=== PATIENT | female | born 1990 | race Caucasian/White ===

== ENCOUNTER 2020-09-21 21:19 | Inpatient (IN) ==
[2020-09-21] MEDS ORDERED: ONDANSETRON 4 MG/2 ML VIAL IV PRN (21:30)
[2020-09-21] MEDS ORDERED: LACTATED RINGERS 1,000 ML IV SCH (21:30)
[2020-09-21] MEDS ORDERED: BUTORPHANOL 2 MG/ML VIAL IV PRN (21:36)
[2020-09-21] MEDS ORDERED: MEPERIDINE 50 MG/1 ML VIAL IV PRN (21:36)
[2020-09-21 22:13] LABS: Basophils % 0.3 % (0.0-0.8); Eosinophils % 0.2 % (0.00-10.9); Hematocrit 32.9 VOL% (35.7-47.0); Hemoglobin 11.1 GM/DL (12.0-16.0); Immature Granulocytes % 0.3 %; Immature Granulocytes Absolute 0.02 #; Lymphocytes % 16.7 % (21.3-54.2); Mean Corpuscular HGB Conc 33.7 GM/DL (32-36); Mean Corpuscular Volume 89.4 FL (87-102); Mean Platelet Volume 11.9 FL (9.6-12.0); Monocytes % 4.2 % (1.7-12.7); Neutrophils % 78.3 % (38.7-73.9); Platelet Count 182 T/CUMM (130-400); Red Blood Count 3.68 MC/CUMM (3.8-5.5); Red Cell Distribution Width 12.8 % (9.3-17.3); White Blood Count 5.9 T/CUMM (4-12)
[2020-09-22] MEDS ORDERED: OXYTOCIN/LR 20 UNIT/1,000 ML BAG IV SCH (05:00)
[2020-09-22] MEDS ORDERED: ONDANSETRON 4 MG/2 ML VIAL IV ONE (06:51)
[2020-09-22] MEDS ORDERED: PROMETHAZINE 25 MG/1 ML VIAL IM ONE (06:51)
[2020-09-22] MEDS ORDERED: ePHEDrine 50 MG/ML VIAL IV PRN (06:51)
[2020-09-22] MEDS ORDERED: hydrOXYzine HCL 25 MG/1 ML VIAL IM PRN (06:51)
[2020-09-22] MEDS ORDERED: diphenhydrAMINE 50 MG/1 ML VIAL IV PRN ×2 (06:51)
[2020-09-22] MEDS ORDERED: NALOXONE 0.4 MG/ML VIAL IV PRN (06:51)
[2020-09-22] MEDS ORDERED: CITRIC ACID/SODIUM CITRATE 30 ML UDCUP PO ONE (06:52)
[2020-09-22] MEDS ORDERED: FAMOTIDINE 20 MG/2 ML VIAL IV ONE (06:52)
[2020-09-22] MEDS ORDERED: LACTATED RINGERS 1,000 ML IV SCH (07:00)
[2020-09-22] MEDS ORDERED: fentaNYL 2 MCG/ROPIV 0.2% EPID 100 ML EPIDURAL SCH (07:00)
[2020-09-22] MEDS ORDERED: miSOPROStoL 200 MCG TABLET ONE (09:43)
[2020-09-22] MEDS ORDERED: TRANEXAMIC ACID 1,000 MG/10 ML VIAL ONE (09:43)
[2020-09-22] MEDS ORDERED: CARBOPROST TROMETHAMINE 250 MCG/ML AMP IM ONE (09:44)
[2020-09-22] MEDS ORDERED: METHYLERGONOVINE 0.2 MG/1 ML AMP ONE (09:44)
[2020-09-22] MEDS ORDERED: OXYTOCIN/LR 20 UNIT/1,000 ML BAG IV ONE ×2 (09:44→10:53)
[2020-09-22] MEDS ORDERED: LIDOCAINE 2% 20 ML VIAL ONE (09:45)
[2020-09-22 10:40] LABS: Cord Arterial Blood HCO3 21.1 MMOL/L
[2020-09-22 10:43] LABS: Cord Venous Blood HCO3 19.8 MMOL/L; Cord Venous Blood PCO2 43.9 MMHG; Cord Venous Blood PO2 30.7 MMHG
[2020-09-22] MEDS ORDERED: DIPH/TET/ACEL PERT BOOSTER VACCINE 0.5 ML VIAL IM ONE (10:53)
[2020-09-22] MEDS ORDERED: MEASLES/MUMPS/RUBELLA VACCINE 0.5 ML VIAL SUBCUT ONE (10:53)
[2020-09-22] MEDS ORDERED: RHO(D) IMMUNE GLOBULIN 300 MCG SYRINGE IM ONE (10:53)
[2020-09-22] MEDS ORDERED: ACETAMINOPHEN 325 MG TABLET PO PRN (10:53)
[2020-09-22] MEDS ORDERED: ONDANSETRON 4 MG/2 ML VIAL IV PRN (10:53)
[2020-09-22] MEDS ORDERED: BENZOCAINE 20%/MENTHOL 0.5% SPRAY 56 GM CAN TOP PRN (10:53)
[2020-09-22] MEDS ORDERED: HYDROCORTISONE 2.5% RECTAL CREAM 30 GM TUBE TOP PRN (10:53)
[2020-09-22] MEDS ORDERED: LANOLIN 50% CREAM 0.3 OZ TUBE TOP PRN (10:53)
[2020-09-22] MEDS ORDERED: WITCH HAZEL PADS 100/JAR TOP PRN (10:53)
[2020-09-22] MEDS ORDERED: BISACODYL 10 MG SUPP RECTAL PRN (10:53)
[2020-09-22] MEDS: IBUPROFEN 800 MG TABLET PO PRN ×2 (15:09→20:41)
[2020-09-22] MEDS: oxyCODONE/ACETAMINOPHEN 5-325 MG TABLET PO PRN ×2 (15:59→22:25)
[2020-09-22] MEDS: DOCUSATE SODIUM 100 MG CAPSULE PO SCH (20:41)
[2020-09-23 07:00] LABS: Basophils % 0.3 % (0.0-0.8); Eosinophils % 0.3 % (0.00-10.9); Hematocrit 25.3 VOL% (35.7-47.0); Immature Granulocytes % 0.3 %; Immature Granulocytes Absolute 0.01 #; Lymphocytes # 0.7 10*3/uL (1.4-4.0); Lymphocytes % 18.5 % (21.3-54.2); Mean Corpuscular HGB Conc 33.2 GM/DL (32-36); Mean Platelet Volume 11.5 FL (9.6-12.0); Monocytes % 6.2 % (1.7-12.7); Neutrophils % 74.4 % (38.7-73.9); Red Cell Distribution Width 13.2 % (9.3-17.3)
[2020-09-23 07:02] LABS: Red Blood Count 2.72 MC/CUMM (3.8-5.5); White Blood Count 3.7 T/CUMM (4-12)
[2020-09-23 07:03] LABS: Hemoglobin 8.4 GM/DL (12.0-16.0); Platelet Count 110 T/CUMM (130-400)
[2020-09-23] MEDS: oxyCODONE/ACETAMINOPHEN 5-325 MG TABLET PO PRN ×3 (08:11→20:20)
[2020-09-23] MEDS: FERROUS SULFATE 325 MG TABLET PO SCH ×2 (09:38→20:21)
[2020-09-23] MEDS: DOCUSATE SODIUM 100 MG CAPSULE PO SCH ×2 (09:38→20:21)
[2020-09-23] MEDS: MULTIVITAMIN (PRENATAL) TABLET PO SCH (09:38)
[2020-09-23] MEDS ORDERED: RHO(D) IMMUNE GLOBULIN 300 MCG SYRINGE IM ONE (10:30)
[2020-09-23] MEDS: IBUPROFEN 800 MG TABLET PO PRN ×2 (11:47→20:20)
[2020-09-24] MEDS: oxyCODONE/ACETAMINOPHEN 5-325 MG TABLET PO PRN (06:37)
[2020-09-24] MEDS: IBUPROFEN 800 MG TABLET PO PRN (06:38)
[2020-09-24] MEDS: FERROUS SULFATE 325 MG TABLET PO SCH (08:42)
[2020-09-24] MEDS: DOCUSATE SODIUM 100 MG CAPSULE PO SCH (08:42)
[2020-09-24] MEDS: MULTIVITAMIN (PRENATAL) TABLET PO SCH (08:42)
[2020-09-24 09:23] VITALS: BP 124/85
== END 2020-09-24 12:40 | disposition home or self-care (01) | DRG 805 ==
LOC: N.LDOUT 21:19 → N.LD 21:20 → N.OB 09-22 13:41
PROVIDERS: ADMIT Specialist; ATTEND Specialist